=== PATIENT | female | born 1965 | race African-American/Black ===

== ENCOUNTER 2017-01-14 19:46 | Emergency (ER) | payer OTHER ==
[~2017-01-14] VITALS: Ht 157.5 cm; Wt 120.0 kg
[~2017-01-14 19:46] MED LIST: ALLO300T2 PO; CYCL5TAB PO; HYDR-3534 PO; IBUP-232 PO; LEVA500T PO; PAXI20TA PO; ROBA750T PO; SPIR50TA PO; ZOFR8TAB PO
[2017-01-14] MEDS ORDERED: HYDR25TA5 PO (20:03)
[2017-01-14] MEDS ORDERED: ZANT150T2 PO (20:03)
[2017-01-14] MEDS ORDERED: LORA-474 PO (20:03)
[2017-01-14 20:05] VITALS: BP 134/61; PULSE 100; RESP 18; TEMP 98.6; O2SAT 96
--- NOTE | 2017-01-14 20:05 | PD ---
HPI Chief Complaint: Prieto act Time Seen by Provider: 19:55 Travel History International Travel<30 days: No Contact w/Intl Traveler<30days: No Traveled to known affect area: No History of Present Illness HPI The patient is a 52-year-old female who presents to the emergency department as a Prieto act. According to the police affidavit the patient made statements that she is going to take too many medications in an attempt to harm herself. However, the patient denies any suicidal attempt. The patient states she is currently undergoing treatment by Dr. Mark for stage II Hodgkin's lymphoma that affect of the left inguinal region. The patient initially had radiation therapy and currently gets Rituxan on a once monthly basis via a port on the right chest wall. The patient states she is currently undergoing evaluation at work after she apparently gave an employee a bad evaluation and the employee is currently accusing her of her rash. The patient is worried she is going to lose her insurance for her Hodgkin's lymphoma. The patient denies any actual suicidal or homicidal ideation. She denies illicit drug use or alcohol use. She does take Ativan as needed for anxiety which is prescribed by her oncologist. PFSH Past Medical History Arthritis: Yes (OSTEO) Cancer: Yes (NON LYMPHOMA HODGKINS) : 5 Para: 3 Miscarriage: 1 : 1 Dilation and Curettage (D&C): Yes Past Surgical History Section: Yes Ear Surgery: Yes Tonsillectomy: Yes Social History Alcohol Use: Yes Tobacco Use: No Substance Use: No Allergies-Medications (Allergen,Severity, Reaction): Coded Allergies: Latex (Verified Allergy, Intermediate, RASH, 01/14/17) Reported Meds & Prescriptions Reported Meds & Active Scripts Active Ibuprofen 600 Mg Tab 600 Mg PO Q6H PRN Reported Paxil (Paroxetine HCl) 30 Mg Tab 30 Mg PO DAILY Ativan (Lorazepam) 1 Mg Tab 1 Mg PO DAILY PRN Zantac (Ranitidine HCl) 150 Mg Tab 150 Mg PO DAILY Hydrochlorothiazide 25 Mg Tab 25 Mg PO DAILY Zofran (Ondansetron HCl) 8 Mg Tab 8 Mg PO TID Spironolactone 50 Mg Tab 50 Mg PO DAILY Allopurinol 300 Mg Tab 300 Mg PO DAILY Lortab (Hydrocodone-Acetaminophen) 7.5-325 Mg Tab 1 Tab PO Q4H PRN Review of Systems Except as stated in HPI: all other systems reviewed are Neg HENT: No: Lightheadedness Cardiovascular: No: Chest Pain or Discomfort Respiratory: No: Shortness of Breath Gastrointestinal: No: Nausea, Vomiting Musculoskeletal: No: Weakness Neurologic: No: Change in Mentation Psychiatric: Positive: Anxiety, Depression, No: Suicidal Ideations, Mood Disorder, Substance Abuse, Homicidal Ideation Hematologic/Lymphatic: Positive: Other (Hodgkin's lymphoma) Physical Exam Narrative GENERAL: Awake, alert, nontoxic-appearing 52-year-old female who appears his stated age and is in no acute respiratory distress. SKIN: Focused skin assessment warm/dry. HEAD: Atraumatic. Normocephalic. EYES: Pupils equal and round. No scleral icterus. No injection or drainage. ENT: No nasal bleeding or discharge. Mucous membranes pink and moist. NECK: Trachea midline. No JVD. CARDIOVASCULAR: Regular rate and rhythm. No murmur appreciated. Port in place right chest wall. RESPIRATORY: No accessory muscle use. Clear to auscultation. Breath sounds equal bilaterally. MUSCULOSKELETAL: No obvious deformities. No clubbing. No cyanosis. No edema. NEUROLOGICAL: Awake and alert. No obvious cranial nerve deficits. Motor grossly within normal limits. Normal speech. PSYCHIATRIC: Appropriate mood and affect; insight and judgment normal. Data Data Orders Complete Blood Count With Diff (01/14/17 20:01) Comprehensive Metabolic Panel (01/14/17 20:01) Psych Screen (01/14/17 20:01) Drug Screen, Random Urine (01/14/17 20:01) Alcohol (Ethanol) (01/14/17 20:01) Labs Laboratory Tests Test 01/14/17 21:15 White Blood Count 6.1 TH/MM3 Red Blood Count 5.45 MIL/MM3 Hemoglobin 12.2 GM/DL Hematocrit 39.4 % Mean Corpuscular Volume 72.3 FL Mean Corpuscular Hemoglobin 22.4 PG Mean Corpuscular Hemoglobin 31.0 % Concent Red Cell Distribution Width 16.0 % Platelet Count 260 TH/MM3 Mean Platelet Volume 8.4 FL Neutrophils (%) (Auto) 67.2 % Lymphocytes (%) (Auto) 16.2 % Monocytes (%) (Auto) 12.5 % Eosinophils (%) (Auto) 3.4 % Basophils (%) (Auto) 0.7 % Neutrophils # (Auto) 4.1 TH/MM3 Lymphocytes # (Auto) 1.0 TH/MM3 Monocytes # (Auto) 0.8 TH/MM3 Eosinophils # (Auto) 0.2 TH/MM3 Basophils # (Auto) 0.0 TH/MM3 CBC Comment DIFF FINAL Differential Comment Sodium Level 139 MEQ/L Potassium Level 3.7 MEQ/L Chloride Level 104 MEQ/L Carbon Dioxide Level 26.9 MEQ/L Anion Gap 8 MEQ/L Blood Urea Nitrogen 14 MG/DL Creatinine 0.85 MG/DL Estimat Glomerular Filtration 85 ML/MIN Rate Random Glucose 93 MG/DL Calcium Level 9.5 MG/DL Total Bilirubin 0.6 MG/DL Aspartate Amino Transf 20 U/L (AST/SGOT) Alanine Aminotransferase 30 U/L (ALT/SGPT) Alkaline Phosphatase 89 U/L Total Protein 7.7 GM/DL Albumin 3.5 GM/DL Ethyl Alcohol Level LESS THAN 3 MG/DL MDM Medical Decision Making Medical Screen Exam Complete: Yes Emergency Medical Condition: Yes Medical Record Reviewed: Yes Interpretation(s) Laboratory Tests Test 01/14/17 21:15 White Blood Count 6.1 TH/MM3 Red Blood Count 5.45 MIL/MM3 Hemoglobin 12.2 GM/DL Hematocrit 39.4 % Mean Corpuscular Volume 72.3 FL Mean Corpuscular Hemoglobin 22.4 PG Mean Corpuscular Hemoglobin 31.0 % Concent Red Cell Distribution Width 16.0 % Platelet Count 260 TH/MM3 Mean Platelet Volume 8.4 FL Neutrophils (%) (Auto) 67.2 % Lymphocytes (%) (Auto) 16.2 % Monocytes (%) (Auto) 12.5 % Eosinophils (%) (Auto) 3.4 % Basophils (%) (Auto) 0.7 % Neutrophils # (Auto) 4.1 TH/MM3 Lymphocytes # (Auto) 1.0 TH/MM3 Monocytes # (Auto) 0.8 TH/MM3 Eosinophils # (Auto) 0.2 TH/MM3 Basophils # (Auto) 0.0 TH/MM3 CBC Comment DIFF FINAL Differential Comment Sodium Level 139 MEQ/L Potassium Level 3.7 MEQ/L Chloride Level 104 MEQ/L Carbon Dioxide Level 26.9 MEQ/L Anion Gap 8 MEQ/L Blood Urea Nitrogen 14 MG/DL Creatinine 0.85 MG/DL Estimat Glomerular Filtration 85 ML/MIN Rate Random Glucose 93 MG/DL Calcium Level 9.5 MG/DL Total Bilirubin 0.6 MG/DL Aspartate Amino Transf 20 U/L (AST/SGOT) Alanine Aminotransferase 30 U/L (ALT/SGPT) Alkaline Phosphatase 89 U/L Total Protein 7.7 GM/DL Albumin 3.5 GM/DL Ethyl Alcohol Level LESS THAN 3 MG/DL Differential Diagnosis Differential diagnosis includes stress reaction, adjustment reaction, suicidal ideation, Hodgkin's lymphoma, depression, anxiety, mood disorder. Narrative Course The patient's port was accessed, labs were drawn and sent, and the patient was placed on cardiac telemetry monitoring and continuous pulse oximetry monitoring. Psychiatric evaluation was ordered. Labs are unremarkable. Patient is medically cleared to be evaluated by psychiatry. Disposition as per psych. Diagnosis Primary Impression: Adjustment reaction Qualified Code: F43.20 - Adjustment disorder, unspecified type Condition: Stable Corey Baron MD Jan 14, 2017 20:05
[2017-01-14] MEDS ORDERED: PAXI30TA7 PO (21:01)
[2017-01-14 21:44] LABS: AUTOMATED NEUTROPHIL # 4.1 TH/MM3 (1.8-7.7); BASOPHIL % 0.7 % (0.0-2.0); EOSINOPHIL # 0.2 TH/MM3 (0-0.4); EOSINOPHIL % 3.4 % (0.0-4.0); HEMATOCRIT 39.4 % (35.0-46.0); HEMO FLAGS DIFF FINAL; LYMPH % 16.2 % (9.0-44.0); MEAN CELL VOLUME 72.3 FL (80.0-100.0); MEAN CORPUSCULAR HEMOGLOBIN 22.4 PG (27.0-34.0); MONO % 12.5 % (0.0-8.0); NEUT % 67.2 % (16.0-70.0); PLATELET COUNT 260 TH/MM3 (150-450); RED BLOOD COUNT 5.45 MIL/MM3 (4.00-5.30); WHITE BLOOD COUNT 6.1 TH/MM3 (4.0-11.0)
[2017-01-14 22:07] LABS: ANION GAP 8 MEQ/L (5-15); AST (GOT) 20 U/L (15-37); BICARBONATE 26.9 MEQ/L (21.0-32.0); BLOOD UREA NITROGEN 14 MG/DL (7-18); CHLORIDE 104 MEQ/L (98-107); GLOMERULAR FILTRATION RATE 85 ML/MIN (>89); POTASSIUM 3.7 MEQ/L (3.5-5.1); SODIUM (NA) 139 MEQ/L (136-145)
[2017-01-14 22:08] LABS: ALT (GPT) 30 U/L (10-53)
[2017-01-14 22:10] LABS: ALKALINE PHOSPHATASE 89 U/L (45-117); TOTAL BILIRUBIN ADULT 0.6 MG/DL (0.2-1.0)
[2017-01-14 23:00] VITALS: BP 112/68; PULSE 85; RESP 18; O2SAT 96
[2017-01-15 03:00] VITALS: BP 129/62; PULSE 79; RESP 18; O2SAT 98
[2017-01-15 07:58] VITALS: BP 134/78; PULSE 92; RESP 19; O2SAT 98
[2017-01-15] MEDS ORDERED: ACETAMINOPHEN 325 MG TAB PO ONE (08:15)
--- NOTE | 2017-01-15 12:15 | PD ---
History of Present Illness Chief Complaint: Psychiatric Symptoms Time Seen by Provider: 10:00 Travel History International Travel<30 Days: No Contact w/Intl Traveler<30days: No Known affected area: No Legal Status Legal Status: Prieto Act Prieto Act Signed By: Parul Arguello Prieto Act Comment: 2016 @ 1940 History of Present Illness: This is a 52-year-old female brought in under a Prieto act after reportedly being suicidal on her birthday. According to the patient, the patient wanted to spend her birthday alone. Her sister called wanting her to go out and she declined. Her boyfriend reportedly stopped by her home and that her sister arrived with the patient's sons. The patient's sister reportedly felt the patient needed to speak to somebody. The patient stated she did not need to speak to someone and instead took a shower. When she returned from her shower the police were there and they questioned her about having a significant number of Ativan. Patient states the Ativan or old but she was handcuffed by police and believes her words were misinterpreted or twisted. At the present time, the patient denies any suicidal or homicidal ideation, plan or intent. Her cognition is intact and she has no psychotic symptoms. She is verbally chet for safety and she is competent to do so. She denies significant symptoms of depression. PFSH Past Medical History Arthritis: Yes (OSTEO) Cancer: Yes (NON HODGKINS LYMPHOMA) Chemotherapy: Yes (LAST TREATMENT 12/26/16) Diminished Hearing: No Influenza Vaccination: No (UNKNOWN) ?: Not LMP: 12/14/16 : 5 Para: 3 Miscarriage: 1 : 1 Dilation and Curettage (D&C): Yes Past Surgical History Section: Yes Ear Surgery: Yes Tonsillectomy: Yes Other Surgery: Yes (LEFT INGUINAL BIOPSY) Psychiatric History Psychiatric History Hx Psychiatric Treatment: NONE History of Inpatient Treatment: No Guns or firearms in home: No Social History Hx Alcohol Use: Yes (OCCASIONALLY) Hx Tobacco Use: No Hx Substance Use: No Hx of Substance Use Treatment: No Allergies-Medications (Allergen,Severity, Reaction): Coded Allergies: Latex (Verified Allergy, Intermediate, RASH, 01/14/17) Reported Meds & Prescriptions Reported Meds & Active Scripts Active Ibuprofen 600 Mg Tab 600 Mg PO Q6H PRN Reported Paxil (Paroxetine HCl) 30 Mg Tab 30 Mg PO DAILY Ativan (Lorazepam) 1 Mg Tab 1 Mg PO DAILY PRN Zantac (Ranitidine HCl) 150 Mg Tab 150 Mg PO DAILY Hydrochlorothiazide 25 Mg Tab 25 Mg PO DAILY Zofran (Ondansetron HCl) 8 Mg Tab 8 Mg PO TID Spironolactone 50 Mg Tab 50 Mg PO DAILY Allopurinol 300 Mg Tab 300 Mg PO DAILY Lortab (Hydrocodone-Acetaminophen) 7.5-325 Mg Tab 1 Tab PO Q4H PRN Review of Systems Except as stated in HPI: all other systems reviewed are Neg Exam Alert: Yes [place]: Person, Place, Date Mood: Calm Affect: Appropriate Speech: Clear, Logical Eye Contact: Normal Memory Intact: Immediate, Recent, Remote Insight/Judgement Adequate [facility] Medical Decision Making Medical Record Reviewed: Yes Assessment/Plan Patient is reporting no suicidal or homicidal ideation, plan or intent. Her cognition is intact and she has no psychosis. She denies any use of alcohol or illicit drugs. She is verbally chet for safety and she is competent to do so. This physician feels the patient was an appropriately Prieto acted, based on the information provided. Orders Complete Blood Count With Diff (01/14/17 20:01) Comprehensive Metabolic Panel (01/14/17 20:01) Psych Screen (01/14/17 20:01) Drug Screen, Random Urine (01/14/17 20:01) Alcohol (Ethanol) (01/14/17 20:01) Acetaminophen (Tylenol) (01/15/17 08:15) Diet Regular Basic (01/15/17 Breakfast) Results Vital Signs Date Time Temp Pulse Resp B/P Pulse Ox O2 Delivery O2 Flow Rate FiO2 01/15/17 07:58 92 19 01/15/17 07:58 92 19 134/78 98 Room Air 01/15/17 03:00 79 18 129/62 98 Room Air 01/14/17 23:00 85 18 112/68 96 Room Air 01/14/17 20:05 98.6 100 18 134/61 96 Room Air Laboratory Tests Test 01/14/17 21:15 White Blood Count 6.1 Red Blood Count 5.45 Hemoglobin 12.2 Hematocrit 39.4 Mean Corpuscular Volume 72.3 Mean Corpuscular Hemoglobin 22.4 Mean Corpuscular Hemoglobin 31.0 Concent Red Cell Distribution Width 16.0 Platelet Count 260 Mean Platelet Volume 8.4 Neutrophils (%) (Auto) 67.2 Lymphocytes (%) (Auto) 16.2 Monocytes (%) (Auto) 12.5 Eosinophils (%) (Auto) 3.4 Basophils (%) (Auto) 0.7 Neutrophils # (Auto) 4.1 Lymphocytes # (Auto) 1.0 Monocytes # (Auto) 0.8 Eosinophils # (Auto) 0.2 Basophils # (Auto) 0.0 CBC Comment DIFF FINAL Differential Comment Sodium Level 139 Potassium Level 3.7 Chloride Level 104 Carbon Dioxide Level 26.9 Anion Gap 8 Blood Urea Nitrogen 14 Creatinine 0.85 Estimat Glomerular Filtration 85 Rate Random Glucose 93 Calcium Level 9.5 Total Bilirubin 0.6 Aspartate Amino Transf 20 (AST/SGOT) Alanine Aminotransferase 30 (ALT/SGPT) Alkaline Phosphatase 89 Total Protein 7.7 Albumin 3.5 Ethyl Alcohol Level LESS THAN 3 Diagnosis Primary Impression: Adjustment disorder with mixed disturbance of emotions and conduct Departure Forms: Tests/Procedures Patient Instructions: General Instructions, Mood Disorders (ED) Disposition: 01 DISCHARGE HOME Condition: Stable Nitesh Segura MD Jan 15, 2017 12:15
== END 2017-01-15 10:21 | disposition home or self-care (01) ==
LOC: NEPD 19:46
DX: F43.25 Adjustment disorder with mixed disturbance of emotions and conduct (principal); C85.90 Non-Hodgkin lymphoma, unspecified, unspecified site
CPT/HCPCS: 80053; 80307; 85025; 99284

== ENCOUNTER 2018-02-18 14:14 | Observation (INO) ==
[2018-02-18] MEDS ORDERED: Morphine Inj 4 MG/ML Vial IV.PUSH ONE (16:55)
[2018-02-18] MEDS ORDERED: Sod Chloride 0.9% Inj 1,000 ML IV.SIG ONE (16:55)
--- NOTE | 2018-02-18 16:58 | ED ---
HPI General Chief complaint: Chest Pain Stated complaint: Gen pain Time Seen by Provider: 02/18/18 16:55 History of Present Illness HPI narrative: 53-year-old female with a history of chronic low back pain and Hodgkin's lymphoma in remission presents to the emergency department for evaluation of abdominal pain, nausea and chest pain. Patient states that this morning at 2 AM she woke up with these complaints. States that it kept her up for several hours until she laid back down. States that when she woke up again this morning the symptoms have persisted. States that she has generalized abdominal pain that is an 8 on a scale of 1-10. States that the chest pain is located over her left chest and radiates to her left shoulder. States that this chest pain is a 6 on a scale of 1-10. States that her nausea has been persistent however she has had no vomiting. States that she has been able to keep fluids down but has not eaten anything today. Denies any fever, chills, shortness of breath, difficulty breathing, cough or cold symptoms, diarrhea. Denies any history of heart disease. No other complaints. Related Data Home Medications Medication Instructions Recorded Confirmed oxycodone-acetaminophen [Percocet] 1 tab PO BID PRN 02/18/18 02/18/18 Allergies Allergy/AdvReac Type Severity Reaction Status Date / Time latex Allergy Intermediate RASH Verified 02/18/18 17:07 Review of Systems ROS: all other systems reviewed are negative PMFSH Social History Social History Substance History: No History of Abuse Second Hand Smoke Exposure: No Smoking Status: Never smoker How Often Do You Have a Drink Containing Alcohol: Monthly or less Recent Travel in [facility] within the Last 8 Weeks: No Recent Out of Country Travel within the Last 8 Weeks: No Exam Narrative Exam Narrative: GENERAL: Well-nourished and well-developed pleasant patient in no acute distress who does appear in moderate discomfort. SKIN: Warm and dry. HEAD: Normocephalic and atraumatic. EYES: No injection, drainage, or hyphema noted. PERRLA. EOMI. ENT: No nasal drainage noted. Oropharynx is clear. NECK: Supple and the trachea is midline. CARDIOVASCULAR: Regular rate and rhythm. RESPIRATORY: Breath sounds are equal bilaterally with no accessory muscle use, wheezing, rhonchi, or crackles. GASTROINTESTINAL: Generalized tenderness to palpation. Abdomen is soft and nondistended. MUSCULOSKELETAL: No obvious deformities, swelling, cyanosis, or ecchymosis is present throughout the upper and lower extremities. Patient has full range of motion without any signs of neurovascular compromise. Distal pulses are 2+ throughout. NEUROLOGICAL: Awake, alert, and oriented. Normal speech and gait. Cranial nerves are grossly intact. Course Initial Documented Vital Signs Temperature 98.7 F 02/18/18 14:33 Pulse Rate 98 H 02/18/18 14:33 Respiratory Rate 18 02/18/18 14:33 Blood Pressure 142/71 H 02/18/18 14:33 Pulse Oximetry 96 02/18/18 14:33 Last Documented Vital Signs Temperature 98.7 F 02/18/18 14:33 Pulse Rate 91 H 02/18/18 19:55 Respiratory Rate 18 02/18/18 19:55 Blood Pressure 124/70 02/18/18 19:55 Pulse Oximetry 97 02/18/18 19:55 Medical Decision Making MDM Narrative Medical decision making narrative: 53-year-old female persists to the emergency department for evaluation of abdominal pain, nausea and chest pain. Patient is afebrile, vital signs are stable. IV access is obtained, labs of been drawn and sent. Patient is administered Zofran 4 mg IV, morphine 4 mg IV and IV fluids. CT imaging of the abdomen and pelvis has been ordered and is pending. CBC is unremarkable. CMP shows elevated LFTs, otherwise unremarkable. Troponin is less than 0.02. Urinalysis shows 30 protein, large occult blood, positive nitrates, moderate leukocyte esterase, 32 RBCs, 35 white blood cells, moderate bacteria, many mucus. Chest x-ray shows either volume overload versus mild congestive heart failure. No evidence of pneumonia. CT the abdomen and pelvis shows uncomplicated colonic diverticulosis, degenerative changes and scoliosis of the thoracolumbar spine. BNP is unremarkable. Patient has remained stable here in the ED. Patient administered Rocephin 1 g IV for UTI. Pain has improved. Will admit patient to chest pain center for chest pain. Will continue antibiotics for UTI. Medical Screen Exam Complete: Yes Emergency Medical Condition: Yes Differential Diagnosis Differential Diagnosis: Colitis versus diverticulitis versus gastritis versus chest wall pain versus pleurisy versus ACS Lab Data Result diagrams: 02/18/18 17:16 02/18/18 17:16 POC Results POC Urine Results Negative Lab Results 02/18/18 02/18/1818 Range/Units 17:16 17:16 17:16 WBC 6.0 (4.0-11.0) th/mm3 RBC 5.30 (4.00-5.30) mil/mm3 Hgb 11.7 (11.6-15.3) gm/dL Hct 38.0 (35.0-46.0) % MCV 71.8 L (80.0-100.0) fL MCH 22.1 L (27.0-34.0) pg MCHC 30.8 L (32.0-36.0) % RDW 15.2 (11.6-17.2) % Plt Count 209 (150-450) th/mm3 MPV 8.7 (7.0-11.0) fL Neut % (Auto) 57.5 (16.0-70.0) % Lymph % (Auto) 23.5 (9.0-44.0) % [place] % (Auto) 17.1 H (0.0-8.0) % Eos % (Auto) 1.5 (0.0-4.0) % Baso % (Auto) 0.4 (0.0-2.0) % Neut # (Auto) 3.5 (1.8-7.7) th/mm3 Lymph # (Auto) 1.4 (1.0-4.8) th/mm3 [place] # (Auto) 1.0 H (0.0-0.9) th/mm3 Eos # (Auto) 0.1 (0.0-0.4) th/mm3 Baso # (Auto) 0.0 (0.0-0.2) th/mm3 WBC Differential . Differential Comment Auto diff final Sodium 143 (136-145) meq/L Potassium 3.8 (3.5-5.1) meq/L Chloride 107 (98-107) meq/L Carbon Dioxide 27.2 (21.0-32.0) meq/L Anion Gap 9 (5-15) meq/L BUN 12 (7-18) mg/dL Creatinine 0.73 (0.50-1.00) mg/dL Estimated GFR Greater than 89 (>89) mL/min Random Glucose 96 (74-106) mg/dL Calcium 9.4 (8.5-10.1) mg/dL Total Bilirubin 0.9 (0.2-1.0) mg/dL AST 61 H (15-37) U/L ALT 76 H (10-53) U/L Alkaline Phosphatase 123 H (45-117) U/L Troponin I Less than 0.02 L (0.02-0.05) ng/mL B-Natriuretic Peptide (0-100) pg/mL Total Protein 7.9 (6.4-8.2) g/dL Albumin 3.3 L (3.4-5.0) g/dL Lipase 149 (73-393) U/L Urine Color (Yellw/Straw) Urine Clarity (Clear) Urine pH (5.0-8.5) Ur Specific [place] (1.002-1.035) Urine Protein (Neg-Trace) mg/dL Urine Glucose (UA) (Negative) mg/dL Urine Ketones (Negative) mg/dL Urine Occult Blood (Negative) Urine Nitrate (Negative) Urine Bilirubin (Negative) Urine Urobilinogen (Less than 2) mg/dL Ur Leukocyte Esterase (Negative) Urine RBC (0-3) /hpf Urine WBC (0-5) /hpf Ur Squamous Epith Cells (0-5) /hpf Urine Bacteria (None) /hpf Urine Mucus (Occasional) /lpf Micro UA Comment Ur Microscopic Review Urine Culture Comments 02/18/18 02/18/18 Range/Units 17:16 17:52 WBC (4.0-11.0) th/mm3 RBC (4.00-5.30) mil/mm3 Hgb (11.6-15.3) gm/dL Hct (35.0-46.0) % MCV (80.0-100.0) fL MCH (27.0-34.0) pg MCHC (32.0-36.0) % RDW (11.6-17.2) % Plt Count (150-450) th/mm3 MPV (7.0-11.0) fL Neut % (Auto) (16.0-70.0) % Lymph % (Auto) (9.0-44.0) % [place] % (Auto) (0.0-8.0) % Eos % (Auto) (0.0-4.0) % Baso % (Auto) (0.0-2.0) % Neut # (Auto) (1.8-7.7) th/mm3 Lymph # (Auto) (1.0-4.8) th/mm3 [place] # (Auto) (0.0-0.9) th/mm3 Eos # (Auto) (0.0-0.4) th/mm3 Baso # (Auto) (0.0-0.2) th/mm3 WBC Differential Differential Comment Sodium (136-145) meq/L Potassium (3.5-5.1) meq/L Chloride (98-107) meq/L Carbon Dioxide (21.0-32.0) meq/L Anion Gap (5-15) meq/L BUN (7-18) mg/dL Creatinine (0.50-1.00) mg/dL Estimated GFR (>89) mL/min Random Glucose (74-106) mg/dL Calcium (8.5-10.1) mg/dL Total Bilirubin (0.2-1.0) mg/dL AST (15-37) U/L ALT (10-53) U/L Alkaline Phosphatase (45-117) U/L Troponin I (0.02-0.05) ng/mL B-Natriuretic Peptide 47 (0-100) pg/mL Total Protein (6.4-8.2) g/dL Albumin (3.4-5.0) g/dL Lipase (73-393) U/L Urine Color [place] (Yellw/Straw) Urine Clarity Cloudy H (Clear) Urine pH 5.0 (5.0-8.5) Ur Specific [place] 1.029 (1.002-1.035) Urine Protein 30 H (Neg-Trace) mg/dL Urine Glucose (UA) Negative (Negative) mg/dL Urine Ketones Negative (Negative) mg/dL Urine Occult Blood Large H (Negative) Urine Nitrate Positive H (Negative) Urine Bilirubin Negative (Negative) Urine Urobilinogen 2.0 H (Less than 2) mg/dL Ur Leukocyte Esterase Moderate H (Negative) Urine RBC 32 H (0-3) /hpf Urine WBC 35 H (0-5) /hpf Ur Squamous Epith Cells 13 (0-5) /hpf Urine Bacteria Moderate H (None) /hpf Urine Mucus Many H (Occasional) /lpf Micro UA Comment Culture indicated Ur Microscopic Review Not Reportable Urine Culture Comments Culture indicated Imaging Data Radiologist's impression: Abdomen/Pelvis CT 02/18/18 16:55 CONCLUSION: 1. Uncomplicated colonic diverticulosis. 2. Degenerative changes and scoliosis of the thoracolumbar spine. Chest X-Ray 02/18/18 16:55 CONCLUSION: Radiographic appearance consistent with either volume overload versus mild congestive heart failure. No evidence of pneumonia. Discharge Plan Discharge Disposition Patient Disposition: 30 Still Patient Discharge Condition Condition: Stable Discharge Details Diagnosis: Atypical chest pain, UTI (urinary tract infection) Physicians Team ED Provider: Aravind Nunez ED Midlevel Provider: Mariel Bello Primary Care Provider: Loren Rodriguez Attending Provider: Dayo Acharya Discharge Interventions Interventions: Vital Signs Last Done: 02/18/18 19:55 Status ED Status: Admitted Observation Patient
[2018-02-18 17:33] LABS: Baso % (Auto) 0.4 % (0.0-2.0); Eos # (Auto) 0.1 th/mm3 (0.0-0.4); Eos % (Auto) 1.5 % (0.0-4.0); Hemoglobin 11.7 gm/dL (11.6-15.3); Lymph # (Auto) 1.4 th/mm3 (1.0-4.8); Lymph % (Auto) 23.5 % (9.0-44.0); Mean Corpuscular Hemoglobin 22.1 pg (27.0-34.0); Mean Corpuscular Volume 71.8 fL (80.0-100.0); Mean Platelet Volume 8.7 fL (7.0-11.0); Mono % (Auto) 17.1 % (0.0-8.0); Neut # (Auto) 3.5 th/mm3 (1.8-7.7); Neut % (Auto) 57.5 % (16.0-70.0); Platelet Count 209 th/mm3 (150-450); Red Cell Distribution Width 15.2 % (11.6-17.2)
--- NOTE | 2018-02-18 17:36 | XR ---
EXAM DATE: 02/18/2018 5:32 PM EDT AGE/SEX: 53 years / Female INDICATIONS: Chest pain for 2 days. CLINICAL DATA: This is the patient's initial encounter. Patient reports that signs and symptoms have been present for 2 days and indicates a pain score of 8/10. MEDICAL/SURGICAL HISTORY: None. None. COMPARISON: No prior exams available for comparison. FINDINGS: Portable upright view of the chest demonstrates a central line with the tip overlying the mid SVC. Ca rdiac size appears mildly enlarged and there is mild prominence of the central pulmonary vasculature. Lungs are clear. Osseous structures are intact. CONCLUSION: Radiographic appearance consistent with either volume overload versus mild congestive heart failure. No evidence of pneumonia. Electronically signed by: Su Desouza MD 02/18/2018 5:35 PM EDT
[2018-02-18 17:37] LABS: Mean Corpuscular HGB Conc 30.8 % (32.0-36.0)
[2018-02-18 17:48] LABS: Alanine Aminotransferase 76 U/L (10-53); Albumin 3.3 g/dL (3.4-5.0); Anion Gap 9 meq/L (5-15); Aspartate Aminotransferase 61 U/L (15-37); Blood Urea Nitrogen 12 mg/dL (7-18); Calcium 9.4 mg/dL (8.5-10.1); Carbon Dioxide 27.2 meq/L (21.0-32.0); Chloride 107 meq/L (98-107); Glomerular Filtration Rate Greater Than 89 mL/min (>89); Glucose,Random 96 mg/dL (74-106); Potassium 3.8 meq/L (3.5-5.1); Sodium 143 meq/L (136-145)
[2018-02-18 17:52] LABS: Alkaline Phosphatase 123 U/L (45-117); Total Protein 7.9 g/dL (6.4-8.2)
[2018-02-18 18:11] LABS: Bacteria,Urine Moderate /hpf; Bilirubin,Urine Negative (Negative); Clarity,Urine Cloudy (Clear); Color,Urine Amber (Yellw/Straw); Glucose,Urine (UA) Negative (Negative); Leukocyte Esterase,Urine Moderate (Negative); Mucus,Urine Many /lpf (Occasional); Nitrite,Urine Positive (Negative); Specific Gravity,Urine 1.029 (1.002-1.035); Squamous Epithelial Cell,Urine 13 /hpf (0-5)
--- NOTE | 2018-02-18 19:04 | CT ---
EXAM DATE: 02/18/2018 6:55 PM EDT AGE/SEX: 53 years / Female INDICATIONS: Lower bilateral abdomen pain for one day. CLINICAL DATA: This is the patient's initial encounter. Patient reports that signs and symptoms have been present for 1 day and indicates a pain score of 7/10. MEDICAL/SURGICAL HISTORY: . Hodgkin's Lymphoma. None. ORAL CONTRAST: No oral contrast ingested. RADIATION DOSE: 33.50 CTDI (mGy) ; Patient body habitus COMPARISON: [facility] – [place], CT ABDOMEN & PELVIS W/O CONTRAST, 05/04/2016. . TECHNIQUE: Multiple contiguous axial images were obtained through the abdomen and pelvis following b olus infusion of 97 ml Omnipaque 350 (iohexol) nonionic water-soluble contrast as a single exam dos e. No oral contrast ingested. Using automated exposure control and adjustment of the mA and/or kV ac cording to patient size, radiation dose was kept as low as reasonably achievable to obtain optimal di agnostic quality images. DICOM format image data is available electronically for review and comparis on. FINDINGS: Lower Lungs: The visualized lower lungs are clear. Liver: The liver has a homogeneous density without space-occupying lesion. There is no dilation of th e biliary tree. Spleen: Homogeneous density without enlargement. Pancreas: Unremarkable without mass or calcification. Kidneys: Normal in size and shape. No evidence of mass or hydronephrosis. Adrenal Glands: Unremarkable. Aorta: The aorta and proximal iliac vessels are grossly unremarkable without aneurysmal dilation. Bowel/Mesentery: Uncomplicated colonic diverticulosis is noted. No acute diverticulitis is noted. Abdominal Wall: Intact. Retroperitoneum: No evidence of adenopathy in the retrocrural, para-aortic, or deep pelvic regions. Bladder: Contours are smooth. Reproductive Organs: No abnormal masses or calcifications seen. Inguinal: The inguinal region is unremarkable without evidence of adenopathy. Bony Structures: Degenerative changes and scoliosis of the thoracolumbar spine are noted. CONCLUSION: 1. Uncomplicated colonic diverticulosis. 2. Degenerative changes and scoliosis of the thoracolumbar spine. Electronically signed by: Grady Gomez MD 02/18/2018 7:03 PM EDT
[2018-02-18] MEDS ORDERED: Iohexol Inj 350 MG/ML 100 ML Bottle (for RAD Diag) IVCONTRAST ONE (19:28)
[2018-02-18] MEDS: Sod Chloride 0.9% Inj 1,000 ML IV.CONT SCH (23:17)
[2018-02-18 23:43] LABS: Creatine Kinase 118 U/L (26-192)
[2018-02-19 03:57] LABS: Creatine Kinase 110 U/L (26-192)
[2018-02-19] MEDS: Sod Chloride 0.9% Inj 1,000 ML IV.CONT SCH (08:30)
[2018-02-19] MEDS ORDERED: Aspirin 325 MG Tablet PO SCH (09:00)
--- NOTE | 2018-02-19 11:31 | P.HPIM ---
History of Present Illness Primary Care Physician: Loren Rodriguez Chief Complaint: Chest, shoulder, abdominal pain, N/V History of Present Illness: The patient is a 53 year old female with a past medical history significant for Hodgkin's Lymphoma diagnosed in 2016 and currently in remission who is presenting to the hospital with chest, shoulder, abdominal pain and nausea and vomiting. The patient says that she woke up yesterday morning at 2:52 AM secondary to severe chest, shoulder and abdominal pain. She said the chest pain was located at the top left of her chest. She says her shoulder pain was located in her left shoulder area. She describes generalized abdominal pain. She is not sure which pain started first. She said she was sweating a lot while she was having the symptoms. She denied shortness of breath. She did not think she had a fever. She denies any new rashes. She says the pain kept getting worse throughout the day so she came to the hospital for further evaluation. In the ED she received morphine and her pain resolved with that. She is still very nauseous. She says her symptoms are similar to the symptoms she had when diagnosed with Hodgkin's Lymphoma. She underwent chemotherapy and radiation treatment and is currently in remission. She states that she has a had an unintentional weight loss of 30 pounds over the past few months. She says that she gets full very quickly and sometimes has abdominal pain. She said that she had an upper and lower GI within the last few years. She follows up with oncology as an outpt regularly. She still has a port in place. She is currently complaining of a headache. Review of Systems All other systems reviewed negative except as stated in HPI PMFSH - History History Provided By: Patient - Medical History Medical History: Medical History (Last Reviewed 02/19/18 @ 11:32 by Geo Romero DO) Chronic low back pain Hodgkins lymphoma - Surgical History Surgical History: Surgical History (Last Updated 02/19/18 @ 11:32 by Geo Romero DO) Previous section - Family History Family History: Family History (Last Updated 02/19/18 @ 11:33 by Geo Romero DO) Other Dementia HTN (hypertension) - Social History I have reviewed the patient's Social History: Yes - Tobacco History Second Hand Smoke Exposure: No Tobacco Use In Past 30 Days: No Smoking Status: Never smoker - Alcohol History How Often Do You Have a Drink Containing Alcohol: Monthly or less - Substance Use History Substance History: No History of Abuse - Travel History Recent Travel in the [place] Within the Last 8 Weeks: No Recent Travel Out of the Country Within the Last 8 Weeks: No - Immunization History Tetanus Immunization: >5 Years Hx Influenza Vaccine This Season: No Medications and Allergies Active Medications: Active Medications Hydrocodone Bitart/Acetaminophen (Yulan 7.5/325) 1 tab PO Q4H PRN PRN Reason: PAIN SCALE 1 TO 7 Last Admin: 02/18/18 23:15 Dose: 1 tab Cephalexin Monohydrate (Keflex) 500 mg PO BID [facility] Last Admin: 02/19/18 08:01 Dose: 500 mg Sodium Chloride (Ns Inj) 1,000 mls @ 100 mls/hr IV.CONT .Q10H [facility] Last Admin: 02/19/18 08:30 Dose: 100 mls/hr Ketorolac Tromethamine (Toradol Inj) 30 mg IV.PUSH Q6H [facility] Stop: 02/21/18 02:01 Metoclopramide HCl (Reglan Inj) 5 mg IV.PUSH Q8H PRN; Protocol PRN Reason: BREAKTHROUGH NAUSEA Ondansetron HCl (Zofran Inj) 4 mg IV.PUSH Q6H PRN PRN Reason: NAUSEA Last Admin: 02/19/18 08:01 Dose: 4 mg Oxycodone/Acetaminophen (Percocet 10/325 Mg) 1 tab PO Q4H PRN PRN Reason: pain 8-10 Sodium Chloride (Ns Flush) 2 ml IV.FLUSH UNSCH PRN PRN Reason: FLUSH AFTER USING IV ACCESS Sodium Chloride (Ns Flush) 2 ml IV.FLUSH BID [facility] Last Admin: 02/19/18 08:01 Dose: 2 ml Sodium Chloride (Ns Flush) 2 ml IV.FLUSH PRN PRN PRN Reason: FLUSH AFTER USING IV ACCESS Allergies Allergy/AdvReac Type Severity Reaction Status Date / Time latex Allergy Intermediate RASH Verified 02/18/18 17:07 Home Medications Medication Instructions Recorded Confirmed Type oxycodone-acetaminophen [Percocet] 1 tab PO BID PRN 02/18/18 02/18/18 History Exam Vital signs: Vital Signs 02/18/18 14:33 02/18/18 17:19 02/18/18 17:50 Temperature 98.7 F Pulse Rate 98 H 96 H Respiratory Rate 18 18 18 Blood Pressure 142/71 H 133/88 Pulse Oximetry 96 98 02/18/18 19:55 02/18/18 23:00 02/19/18 00:00 Temperature 98.2 F Pulse Rate 91 H 92 H 88 Respiratory Rate 18 20 Blood Pressure 124/70 138/76 Pulse Oximetry 97 96 02/19/18 01:00 02/19/18 02:00 02/19/18 03:00 Temperature 98.7 F Pulse Rate 89 92 H 114 H Respiratory Rate 20 Blood Pressure 109/58 L Pulse Oximetry 96 02/19/18 04:00 02/19/18 05:00 02/19/18 06:00 Temperature Pulse Rate 93 H 87 91 H Respiratory Rate Blood Pressure Pulse Oximetry 02/19/18 07:00 02/19/18 08:00 02/19/18 09:00 Temperature 98.2 F Pulse Rate 95 H 89 88 Respiratory Rate 24 Blood Pressure 141/81 H Pulse Oximetry 97 97 02/19/18 10:00 02/19/18 11:00 Temperature 98.5 F Pulse Rate 95 H 90 Respiratory Rate 20 Blood Pressure 138/73 Pulse Oximetry 97 Intake & Output 02/18/18 02/19/18 02/19/18 18:59 06:59 18:59 Intake Total 1000 / 1000 340 / 340 1000 / 1000 Output Total 300 / 300 Balance 1000 / 1000 40 / 40 1000 / 1000 Weight 151.5 kg 151.5 kg Intake: IV 1000 / 1000 100 / 100 1000 / 1000 NS Inj 1,000 ML @ 100 mls/hr IV 1000 / 1000 .CONT .Q10H [facility] Rx#:[id number] NS Inj 1,000 ML @ Wide Open IV. 1000 / 1000 SIG BOLUS ONE Rx#:[id number] Rocephin Inj 1,000 MG In NS Inj 100 / 100 100 ML @ 200 mls/hr IV.SIG ONCE ONE Rx#:[id number] Oral 240 / 240 Output: Urine 300 / 300 Other: Date of Last Bowel Movement 02/17/18 Narrative: GENERAL: Well-nourished and well-developed. SKIN: Warm and dry. HEAD: Normocephalic and atraumatic. EYES: No injection, drainage, or hyphema noted. PERRLA. EOMI. ENT: No nasal drainage noted. Oropharynx is clear. NECK: Supple and the trachea is midline. CARDIOVASCULAR: Regular rate and rhythm. RESPIRATORY: Breath sounds are equal bilaterally with no accessory muscle use, wheezing, rhonchi, or crackles. GASTROINTESTINAL: Generalized tenderness to palpation of chest wall. Abdomen is soft and nondistended but has general tenderness upon palpation. MUSCULOSKELETAL: No obvious deformities, swelling, cyanosis, or ecchymosis is present throughout the upper and lower extremities. Patient has full range of motion without any signs of neurovascular compromise. Distal pulses are 2+ throughout. NEUROLOGICAL: Awake, alert, and oriented. Normal speech and gait. Cranial nerves are grossly intact. Results - Labs CBC & Chem 7: 02/18/18 17:16 02/18/18 17:16 Labs: Short CBC 02/18/18 Range/Units 17:16 WBC 6.0 (4.0-11.0) th/mm3 Hgb 11.7 (11.6-15.3) gm/dL Hct 38.0 (35.0-46.0) % Plt Count 209 (150-450) th/mm3 BMP 02/18/18 17:16 Sodium 143 Potassium 3.8 Chloride 107 Carbon Dioxide 27.2 BUN 12 Creatinine 0.73 Calcium 9.4 Cardiac Enzymes 02/18/18 02/18/18 02/19/18 Range/Units 17:16 22:30 02:22 Total Creatine Kinase 118 110 (26-192) U/L Troponin I Less than 0.02 L Less than 0.02 L Less than 0.02 L (0.02-0.05) ng/mL Liver Function 02/18/18 Range/Units 17:16 Total Bilirubin 0.9 (0.2-1.0) mg/dL AST 61 H (15-37) U/L ALT 76 H (10-53) U/L Alkaline Phosphatase 123 H (45-117) U/L Albumin 3.3 L (3.4-5.0) g/dL Urine 02/18/18 Range/Units 17:52 Urine Color Ida (Yellw/Straw) Urine Clarity Cloudy H (Clear) Urine pH 5.0 (5.0-8.5) Ur Specific [place] 1.029 (1.002-1.035) Urine Protein 30 H (Neg-Trace) mg/dL Urine Glucose (UA) Negative (Negative) mg/dL - Imaging Impressions Abdomen/Pelvis CT 02/18/18 16:55 CONCLUSION: 1. Uncomplicated colonic diverticulosis. 2. Degenerative changes and scoliosis of the thoracolumbar spine. Chest X-Ray 02/18/18 16:55 CONCLUSION: Radiographic appearance consistent with either volume overload versus mild congestive heart failure. No evidence of pneumonia. Caprini VTE Risk Assessment Caprini VTE Risk Assessment: Moderate/High Risk (score >= 2) Caprini Risk Assessment Model: Point Value = 1 Point Value = 2 Point Value = 3 Point Value = 5 Age 41-60 Minor surgery BMI > 25 kg/m2 Swollen legs Varicose veins or History of unexplained or recurrent spontaneous Oral contraceptives or hormone replacement Sepsis (< 1 month) Serious lung disease, including pneumonia (< 1 month) Abnormal pulmonary function Acute myocardial infarction Congestive heart failure (< 1 month) History of inflammatory bowel disease Medical patient at bed rest Age 61-74 Arthroscopic surgery Major open surgery (> 45 min) Laparoscopic surgery (> 45 min) Malignancy Confined to bed (> 72 hours) Immobilizing plaster cast Central venous access Age >= 75 History of VTE Family history of VTE Factor V Leiden Prothrombin [id number] Lupus anticoagulant Anticardiolipin antibodies Elevated serum homocysteine Heparin-induced thrombocytopenia Other congenital or acquired thrombophilia Stroke (< 1 month) Elective arthroplasty Hip, pelvis, or leg fracture Acute spinal cord injury (< 1 month) Prophylaxis Regimen: Total Risk Factor Score Risk Level Prophylaxis Regimen 0-1 Low Early ambulation 2 Moderate Order ONE of the following: *Sequential Compression Device (SCD) *Heparin 5000 units SQ BID 3-4 Higher Order ONE of the following medications: *Heparin 5000 units SQ TID *Enoxaparin/Lovenox 40 mg SQ daily (WT < 150 kg, CrCl > 30 mL/min) *Enoxaparin/Lovenox 30 mg SQ daily (WT < 150 kg, CrCl > 10-29 mL/min) *Enoxaparin/Lovenox 30 mg SQ BID (WT < 150 kg, CrCl > 30 mL/min) AND/OR *Sequential Compression Device (SCD) 5 or more Highest Order ONE of the following medications: *Heparin 5000 units SQ TID (Preferred with Epidurals) *Enoxaparin/Lovenox 40 mg SQ daily (WT < 150 kg, CrCl > 30 mL/min) *Enoxaparin/Lovenox 30 mg SQ daily (WT < 150 kg, CrCl > 10-29 mL/min) *Enoxaparin/Lovenox 30 mg SQ BID (WT < 150 kg, CrCl > 30 mL/min) AND *Sequential Compression Device (SCD) Assessment and Plan - Plan Chest pain/ Shoulder pain/ Abdominal pain Seems musculoskeletal. Reproducible on exam. Trops negative. EKG without acute ischemia. CXR with mild volume overload. Patient states she has had a normal cardiac catheterization in the past. -pain control with a bowel regimen. -telemetry. -trend LFTs. -physical therapy. N/V/ Weight loss The pt endorses a recent 30 pound weight loss. LFTs are mildly elevated. -check TSH and A1c. -antiemetics as needed. -clear liquid diet for now. -trend LFTs. Hodgkin's Lymphoma The pt states her symptoms are identical to the symptoms she had when diagnosed with lymphoma. In addition she has had an unintentional 30 pound weight loss. -oncology consult requested. -ADAT. -follow CBC. UTI UA indicative of infection. -continue PO Keflex and follow urine culture. PPx: SCDs H&P: Quality - VTE Deep Vein Thrombosis/Pulmonary Embolism Present on Admission: No
[2018-02-19] MEDS: oxyCODONE/Acetaminophen 10/325 Tablet PO PRN ×2 (13:24→23:54)
[2018-02-19] MEDS ORDERED: Ketorolac Inj 30 MG/ML (IVP) Vial IV.PUSH SCH (20:00)
[2018-02-19 20:59] LABS: Hemoglobin A1c 5.6 % (4.3-6.0)
--- NOTE | 2018-02-20 00:06 | ECG ---
Date Performed: 02/19/2018 Time Performed: 01:26:48 PTAGE: 53 years EKG: Sinus rhythm Left axis deviation IV conduction defect Abnormal ECG PREVIOUS TRACING : 02/18/2018 22.35 Since the previous tracing, no significant change noted DOCTOR: Raymond Arguello Interpretating Date/Time 02/20/2018 00:04:51
--- NOTE | 2018-02-20 00:10 | ECG ---
Date Performed: 02/18/2018 Time Performed: 22:35:03 PTAGE: 53 years EKG: Sinus rhythm MARKED LEFT AXIS DEVIATION INTRAVENTRICULAR CONDUCTION DELAY POSSIBLE LEFT VENTRICULAR HYPERTROPHY P ROBABLE LATERAL MYOCARDIAL INFARCTION ABNORMAL ECG PREVIOUS TRACING : 02/18/2018 18.12 Since the previous tracing, no significant change noted DOCTOR: Raymond Arguello Interpretating Date/Time 02/20/2018 00:09:18
--- NOTE | 2018-02-20 00:39 | ECG ---
Date Performed: 02/18/2018 Time Performed: 18:12:53 PTAGE: 53 years EKG: Sinus rhythm MARKED LEFT AXIS DEVIATION VOLTAGE CRITERIA FOR LVH POSSIBLE LATERAL MYOCARDIAL INFARCTION ABNORMAL ECG WARNING: DATA QUALITY MAY AFFECT INTERPRETATION PREVIOUS TRACING : 01/18/1998 10.03 Since the previous tracing, no significant change not ed DOCTOR: Raymond Arguello Interpretating Date/Time 02/20/2018 00:37:49
[2018-02-20 06:47] LABS: Baso % (Auto) 0.3 % (0.0-2.0); Eos # (Auto) 0.1 th/mm3 (0.0-0.4); Eos % (Auto) 2.4 % (0.0-4.0); Hematocrit 33.5 % (35.0-46.0); Hemoglobin 10.2 gm/dL (11.6-15.3); Lymph # (Auto) 1.1 th/mm3 (1.0-4.8); Lymph % (Auto) 19.8 % (9.0-44.0); Mean Corpuscular Hemoglobin 21.9 pg (27.0-34.0); Mean Platelet Volume 9.1 fL (7.0-11.0); Mono # (Auto) 0.9 th/mm3 (0.0-0.9); Mono % (Auto) 17.1 % (0.0-8.0); Neut # (Auto) 3.2 th/mm3 (1.8-7.7); Neut % (Auto) 60.4 % (16.0-70.0); Platelet Count 188 th/mm3 (150-450); Red Blood Count 4.65 mil/mm3 (4.00-5.30); Red Cell Distribution Width 15.1 % (11.6-17.2); White Blood Count 5.4 th/mm3 (4.0-11.0)
[2018-02-20 06:54] LABS: Mean Corpuscular HGB Conc 30.4 % (32.0-36.0)
[2018-02-20 07:17] LABS: Alanine Aminotransferase 93 U/L (10-53); Albumin 2.7 g/dL (3.4-5.0); Anion Gap 10 meq/L (5-15); Aspartate Aminotransferase 59 U/L (15-37); Blood Urea Nitrogen 10 mg/dL (7-18); Calcium 8.7 mg/dL (8.5-10.1); Carbon Dioxide 26.9 meq/L (21.0-32.0); Chloride 107 meq/L (98-107); Glomerular Filtration Rate Greater Than 89 mL/min (>89); Glucose,Random 98 mg/dL (74-106); Potassium 3.5 meq/L (3.5-5.1); Sodium 144 meq/L (136-145)
[2018-02-20 07:19] LABS: Alkaline Phosphatase 119 U/L (45-117); Total Protein 6.9 g/dL (6.4-8.2)
--- NOTE | 2018-02-20 07:35 | P.CON ---
History of Present Illness Service: Hematology/oncology Consult date: 02/20/18 Requesting Physician: eGo Romero Reason for Consult: Patient with history of lymphoma. Primary Care Provider: Loren Rodriguez Family Provider: Loren Rodriguez Chief Complaint: Chest, shoulder, abdominal pain, N/V History of Present Illness: Ms. 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 The patient reports being diagnosed in June 2015 with a lymphoma, she is not certain whether this was a Hodgkin lymphoma or a non-Hodgkin lymphoma she does however know she was on treatment with single agent Rituxan between August 2015 and January 2017 under the care of Dr. Petra Mark with [facility] in [place]. She tells me in addition to receiving Rituxan she was treated with external beam radiation. She initially presented to [facility] ([place], [place]) with fevers in June 2015, she was noted to have inguinal lymphadenopathy and underwent an excisional biopsy of 1 of the outside dealer sales representative lymph nodes, this established a diagnosis of lymphoma. The patient tells me she has been on observation for about 1 year now. Over the past 2 and half months she reports noting an unintended 30 pound weight loss, she reports her energy levels have been poor and her appetite is also been poor. Over the past several day she developed symptoms of abdominal pain, nausea and vomiting. She came into this facility for further workup and evaluation. Imaging studies were performed including CT scan of abdomen pelvis, findings revealed uncomplicated colonic diverticulosis, without evidence of active inflammation. A chest x-ray performed also at time of admission revealed findings consistent with volume overload versus mild congestive heart failure. There was no evidence of pulmonary infiltrates to suggest pneumonia. The hematology oncology service is been asked to see her in the inpatient setting because the patient is concerned her lymphoma may be relapsing given her unintended weight loss and constitutional symptoms. I would like to add that the patient routinely follows up with her primary oncologist and was last seen in December 2017. Review of Systems Constitutional: Reports lack of energy, Reports malaise, Reports night sweats, Reports weight loss, Denies chills, Denies daytime sleepiness Eyes: Reports loss of vision, Denies blind spots, Denies change in vision, Denies double vision Ears, Nose, Mouth, and Throat: Reports headache(s), Denies abnormal hearing, Denies bleeding gums, Denies sore throat, Denies throat swelling Cardiovascular: Reports chest pain, Reports shortness of breath with activity ( Symptoms are chronic.), Reports shortness of breath when lying down Respiratory: Reports cough, Reports shortness of breath with activity, Denies change in phlegm color, Denies chest congestion Gastrointestinal: Reports abdominal pain, Reports nausea, Denies bloating, Denies bright, red blood in stools, Denies coffee ground vomit, Denies constipation, Denies cramping, Denies difficulty swallowing, Denies pain with swallowing, Denies vomiting, Denies vomiting blood Genitourinary: Denies abnormal periods, Denies vaginal discharge, Denies vaginal odor Comments: She reports vaginal spotting, this is new, she tells me she had been menopausal prior to this. Musculoskeletal: Denies back pain, Denies body aches, Denies decreased muscle mass Skin/Breast: Denies acne Neurologic: Denies abnormal hearing, Denies abnormal movements, Denies abnormal speech, Denies memory loss, Denies numbness, Denies restless legs Psychiatric: Denies abnormal sleep pattern, Denies anxiety Endocrine: Denies cold intolerance Hematologic/Lymphatic: Denies easy bleeding Allergic/Immunologic: Denies GI upset with certain foods PMFSH - History History Provided By: Patient - Medical History Medical History: Medical History (Last Updated 02/20/18 @ 07:30 by Victor M Neumann MD) Anemia Lymphoma Morbid obesity Peripheral edema Port-A-Cath in place Vitamin B12 deficiency Chronic low back pain - Surgical History Surgical History: Surgical History (Last Updated 02/20/18 @ 07:30 by Victor M Neumann MD) H/O adenoidectomy H/O lymph node biopsy History of tympanoplasty Hx of tonsillectomy Previous section - Family History Family History: Family History (Last Updated 02/19/18 @ 11:33 by Geo Romero DO) Other Dementia HTN (hypertension) - Social History I have reviewed the patient's Social History: Yes - Tobacco History Second Hand Smoke Exposure: No Tobacco Use In Past 30 Days: No Smoking Status: Never smoker - Alcohol History How Often Do You Have a Drink Containing Alcohol: Monthly or less - Substance Use History Substance History: No History of Abuse - Travel History History of Recent Travel: Yes Recent Travel in the [place] Within the Last 8 Weeks: No Recent Travel Out of the Country Within the Last 8 Weeks: No - Immunization History Tetanus Immunization: >5 Years Hx Influenza Vaccine This Season: No Medications and Allergies Active Medications: Active Medications Hydrocodone Bitart/Acetaminophen (Porter 7.5/325) 1 tab PO Q4H PRN PRN Reason: PAIN SCALE 1 TO 7 Last Admin: 02/18/18 23:15 Dose: 1 tab Cephalexin Monohydrate (Keflex) 500 mg PO BID [facility] Last Admin: 02/19/18 21:29 Dose: 500 mg Metoclopramide HCl (Reglan Inj) 5 mg IV.PUSH Q8H PRN; Protocol PRN Reason: BREAKTHROUGH NAUSEA Last Admin: 02/19/18 22:03 Dose: 5 mg Ondansetron HCl (Zofran Inj) 4 mg IV.PUSH Q6H PRN PRN Reason: NAUSEA Last Admin: 02/19/18 17:45 Dose: 4 mg Oxycodone/Acetaminophen (Percocet 10/325 Mg) 1 tab PO Q4H PRN PRN Reason: pain 8-10 Last Admin: 02/19/18 23:54 Dose: 1 tab Sodium Chloride (Ns Flush) 2 ml IV.FLUSH UNSCH PRN PRN Reason: FLUSH AFTER USING IV ACCESS Sodium Chloride (Ns Flush) 2 ml IV.FLUSH BID [facility] Last Admin: 02/19/18 21:29 Dose: 2 ml Sodium Chloride (Ns Flush) 2 ml IV.FLUSH PRN PRN PRN Reason: FLUSH AFTER USING IV ACCESS Allergies Allergy/AdvReac Type Severity Reaction Status Date / Time latex Allergy Intermediate RASH Verified 02/18/18 17:07 Home Medications Medication Instructions Recorded Confirmed Type oxycodone-acetaminophen [Percocet] 1 tab PO BID PRN 02/18/18 02/18/18 History Physical Exam Vital signs: Vital Signs 02/19/18 08:00 02/19/18 09:00 02/19/18 10:00 Temperature Pulse Rate 89 88 95 H Respiratory Rate Blood Pressure Pulse Oximetry 97 02/19/18 11:00 02/19/18 12:00 02/19/18 13:00 Temperature 98.5 F Pulse Rate 90 92 H 100 H Respiratory Rate 20 Blood Pressure 138/73 Pulse Oximetry 97 02/19/18 14:00 02/19/18 15:00 02/19/18 16:00 Temperature 98.1 F Pulse Rate 94 H 82 92 H Respiratory Rate 18 Blood Pressure 146/88 H Pulse Oximetry 96 02/19/18 19:00 02/19/18 20:00 02/19/18 23:00 Temperature 98.1 F 98.0 F Pulse Rate 91 H 90 90 Respiratory Rate 16 16 Blood Pressure 107/55 L 136/71 Pulse Oximetry 95 98 02/20/18 00:00 02/20/18 03:00 02/20/18 04:00 Temperature 98.6 F Pulse Rate 81 86 85 Respiratory Rate 16 Blood Pressure 114/63 Pulse Oximetry 98 Intake & Output 02/19/18 02/20/18 02/20/18 18:59 06:59 18:59 Intake Total 2300 / 2300 620 / 620 Output Total 600 / 600 Balance 1700 / 1700 620 / 620 Weight 149.7 kg Intake: IV 1400 / 1400 NS Inj 1,000 ML @ 100 mls/hr IV 1400 / 1400 .CONT .Q10H [facility] Rx#:[id number] Oral 900 / 900 620 / 620 Output: Urine 600 / 600 Other: # Voids 3 Date of Last Bowel Movement 02/19/18 02/19/18 - Constitutional no acute distress - Routine HEENT Exam Head: Present: normocephalic Eye: Present: EOMI, PERRL ENT: Present: mucous membranes moist - Routine Neck Exam Present: supple, full ROM. Absent: JVD, lymphadenopathy - Routine Respiratory Exam Present: CTA bilaterally. Absent: accessory muscle use, rales, respiratory distress, rhonchi, stridor, wheezes, crackles, distant breath sounds - Routine Cardiovascular Exam Present: RRR, S1, S2. Absent: murmur, gallop, rubs, S3, S4 - Routine Abdominal Exam Present: soft. 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 - Routine Extremities Exam Absent: cyanosis - Routine Skin Exam Present: intact - Routine Neurological Exam Present: alert, oriented X3, CN II-XII intact. Absent: sensory deficit, motor deficit - Detailed Neurological Exam: Coma Scale Eye Opening: Spontaneous - Routine Psychiatric Exam Present: normal affect Assessment and Plan - Plan Ms. Norton is a 53-year-old female with a reported history of lymphoma, she is not certain what type of lymphoma she had and I do not have records. She was initially diagnosed at [facility] in [facility], she was treated by Dr. Petra Mark with single agent rituximab followed by external beam radiation. The patient maintains regular follow-up with her primary oncologist and was last seen in December 2017. Since December the patient reports having lost about 30 pounds, she reports poor appetite, has sweats at nighttime and reports increased fatigue. She presented to this facility on 02/18/2018 with complaints of nausea, vomiting and lower abdominal pain. She underwent CT scan of the abdomen which revealed nonspecific findings, a comment was made on the presence of uncommon located diverticulosis. The patient is being empirically treated with oral antibiotic therapy. For further workup of her constitutional symptoms the hematology service was asked to see her to determine if she may have recurrent lymphoma. Recommendations: 1. History of lymphoma: I will request her records from [facility], these records will be reviewed. I did talk to the patient in depth, I examined her in detail, I reviewed her scans and reviewed her blood work. Overall, it appears this patient likely had a low-grade lymphoma given the relatively low intensity therapy with rituximab that was rendered I suspect she likely had a non-Hodgkin lymphoma. Rituxan as a single agent is rarely used and treatment of anything other than a low-grade non-Hodgkin lymphoma. It would be my recommendation that the patient be treated supportively and when she is ready for discharge she follow-up with her primary oncologist for any additional workup which may be needed. Based on my evaluation this morning I do not suspect any acute issues or impending complications relating to an underlying hematologic or malignant hematologic disorder. Disposition: This patient should be clear for discharge whenever she is medically stable. An inpatient workup for chronic low-grade lymphoma is not indicated at this time.
--- NOTE | 2018-02-20 12:45 | P.PN ---
Subjective Interval history: no fever or chills no urinary symptoms but with right CVA tenderness on exam no diarrhea Physical Exam Vital signs: Vital Signs 02/19/18 13:00 02/19/18 14:00 02/19/18 15:00 Temperature 98.1 F Pulse Rate 100 H 94 H 82 Respiratory Rate 18 Blood Pressure 146/88 H Pulse Oximetry 96 02/19/18 16:00 02/19/18 19:00 02/19/18 20:00 Temperature 98.1 F Pulse Rate 92 H 91 H 90 Respiratory Rate 16 Blood Pressure 107/55 L Pulse Oximetry 95 02/19/18 23:00 02/20/18 00:00 02/20/18 03:00 Temperature 98.0 F 98.6 F Pulse Rate 90 81 86 Respiratory Rate 16 16 Blood Pressure 136/71 114/63 Pulse Oximetry 98 98 02/20/18 04:00 02/20/18 08:46 Temperature 98.4 F Pulse Rate 85 91 H Respiratory Rate 18 Blood Pressure 143/81 H Pulse Oximetry 98 Intake & Output 02/19/18 02/20/18 02/20/18 18:59 06:59 18:59 Intake Total 2300 / 2300 620 / 620 Output Total 600 / 600 Balance 1700 / 1700 620 / 620 Weight 149.7 kg Intake: IV 1400 / 1400 NS Inj 1,000 ML @ 100 mls/hr IV 1400 / 1400 .CONT .Q10H [facility] Rx#:[id number] Oral 900 / 900 620 / 620 Output: Urine 600 / 600 Other: # Voids 3 Date of Last Bowel Movement 02/19/18 02/19/18 Narrative: awake and alert, oriented x 3 anciteric no oral thrush lungs- no rales regular rhythm abdomen flabby, soft, nontender, + right mild CVA tenderness extremiteis no calf tenderness neuro exam- urnemarkable Results - Labs CBC & Chem 7: 02/20/18 05:38 02/20/18 05:38 Laboratory Results - last 24 hr 02/18/18 02/18/18 02/18/18 17:16 17:16 17:52 WBC RBC Hgb Hct MCV MCH MCHC RDW Plt Count MPV Neut % (Auto) Lymph % (Auto) Josephine % (Auto) Eos % (Auto) Baso % (Auto) Neut # (Auto) Lymph # (Auto) Josephine # (Auto) Eos # (Auto) Baso # (Auto) WBC Differential Differential Comment Sodium Potassium Chloride Carbon Dioxide Anion Gap BUN Creatinine Estimated GFR Random Glucose Hemoglobin A1c 5.6 Calcium Total Bilirubin Direct Bilirubin Indirect Bilirubin AST ALT Alkaline Phosphatase Total Protein Albumin TSH Less than 0.005 L Urine Color Ida Urine Clarity Cloudy H Urine pH 5.0 Ur Specific [place] 1.029 Urine Protein 30 H Urine Glucose (UA) Negative Urine Ketones Negative Urine Occult Blood Large H Urine Nitrate Positive H Urine Bilirubin Negative Urine Urobilinogen 2.0 H Ur Leukocyte Esterase Moderate H Urine RBC 32 H Urine WBC 35 H Ur Squamous Epith Cells 13 Urine Bacteria Moderate H Urine Mucus Many H Micro UA Comment Culture indicated Urine Culture Comments Culture indicated 02/20/18 02/20/18 05:38 05:38 WBC 5.4 RBC 4.65 Hgb 10.2 L Hct 33.5 L MCV 72.0 L MCH 21.9 L MCHC 30.4 L RDW 15.1 Plt Count 188 MPV 9.1 Neut % (Auto) 60.4 Lymph % (Auto) 19.8 Josephine % (Auto) 17.1 H Eos % (Auto) 2.4 Baso % (Auto) 0.3 Neut # (Auto) 3.2 Lymph # (Auto) 1.1 Josephine # (Auto) 0.9 Eos # (Auto) 0.1 Baso # (Auto) 0.0 WBC Differential . Differential Comment Auto diff final Sodium 144 Potassium 3.5 Chloride 107 Carbon Dioxide 26.9 Anion Gap 10 BUN 10 Creatinine 0.67 Estimated GFR Greater than 89 Random Glucose 98 Hemoglobin A1c Calcium 8.7 Total Bilirubin 0.7 Direct Bilirubin 0.2 Indirect Bilirubin 0.5 AST 59 H ALT 93 H Alkaline Phosphatase 119 H Total Protein 6.9 D Albumin 2.7 L D TSH Urine Color Urine Clarity Urine pH Ur Specific [place] Urine Protein Urine Glucose (UA) Urine Ketones Urine Occult Blood Urine Nitrate Urine Bilirubin Urine Urobilinogen Ur Leukocyte Esterase Urine RBC Urine WBC Ur Squamous Epith Cells Urine Bacteria Urine Mucus Micro UA Comment Urine Culture Comments Microbiology 02/18/18 17:52 Clean Catch Urine Urine Culture - Final Klebsiella pneumoniae Escherichia coli Assessment and Plan - Plan 53 years old female UTI- growing Klebsieela and E coli clinically with right sided CVA tenderness - placed on keflex 500 mg bid on admission - change to levaquin 750 mg daily - CT of abdomen/pelvis- shows no hydronephrosis or pyelonephritis Chest pain/ Shoulder pain/ Abdominal pain- imrpoved Seems musculoskeletal. Reproducible on exam. Trops negative. EKG without acute ischemia. CXR with mild volume overload. Patient states she has had a normal cardiac catheterization in the past. -pain control with a bowel regimen. -telemetry. -trend LFTs. -physical therapy. N/V/ Weight loss The pt endorses a recent 30 pound weight loss. LFTs are mildly elevated. -check TSH and A1c. -antiemetics as needed. -clear liquid diet for now.- advance diet -trend LFTs. Hodgkin's Lymphoma The pt states her symptoms are identical to the symptoms she had when diagnosed with lymphoma. In addition she has had an unintentional 30 pound weight loss. -oncology ff -ADAT. -follow CBC. if afebrile next 24 hours- DC home in am OP ff with her Oncologist- Dr melo- [facility] [place]
[2018-02-20] MEDS ORDERED: levoFLOXacin 750 MG Tablet PO SCH (13:00)
[2018-02-20] MEDS: oxyCODONE/Acetaminophen 10/325 Tablet PO PRN (15:03)
[2018-02-21 07:28] VITALS: BP 131/68; RESP 18; TEMP 98.1
--- NOTE | 2018-02-21 09:28 | P.PN ---
Subjective Interval history: no fever or chills no abdominal pain no dysuria states poor po appetite and this has been going on for past 3-4 months with weight loss Physical Exam Vital signs: Vital Signs 02/20/18 11:00 02/20/18 12:00 02/20/18 15:00 Temperature 98 F 98.5 F Pulse Rate 93 H 89 90 Respiratory Rate 18 16 Blood Pressure 142/85 H 124/74 Pulse Oximetry 98 02/20/18 16:00 02/20/18 20:51 02/20/18 20:52 Temperature 98.3 F Pulse Rate 92 H 84 84 Respiratory Rate 20 Blood Pressure 137/90 Pulse Oximetry 97 02/20/18 21:37 02/21/18 00:00 02/21/18 00:03 Temperature 98.4 F Pulse Rate 77 84 Respiratory Rate 18 18 Blood Pressure 118/82 Pulse Oximetry 100 02/21/18 03:00 02/21/18 04:00 02/21/18 04:08 Temperature 98.2 F Pulse Rate 92 H 83 Respiratory Rate 16 19 Blood Pressure 133/92 H Pulse Oximetry 98 02/21/18 07:00 Temperature 98.1 F Pulse Rate 82 Respiratory Rate 18 Blood Pressure 131/68 Pulse Oximetry 98 Intake & Output 02/20/18 02/21/18 02/21/18 18:59 06:59 18:59 Intake Total 1200 / 1200 900 / 900 Balance 1200 / 1200 900 / 900 Weight 147.4 kg Intake: Oral 1200 / 1200 900 / 900 Other: # Voids 5 3 Date of Last Bowel Movement 02/19/18 02/19/18 Narrative: awake and alert, oriented x 3 anciteric no oral thrush lungs- no rales regular rhythm abdomen flabby, soft, nontender, + right mild CVA tenderness extremiteis no calf tenderness neuro exam- urnemarkable Results - Labs CBC & Chem 7: 02/20/18 05:38 02/20/18 05:38 Microbiology 02/18/18 17:52 Clean Catch Urine Urine Culture - Final Klebsiella pneumoniae Escherichia coli Assessment and Plan - Plan 53 years old female UTI- growing Klebsieela and E coli clinically with right sided CVA tenderness - placed on keflex 500 mg bid on admission - change to levaquin 500 mg daily - treat for 7 days total- - CT of abdomen/pelvis- shows no hydronephrosis or pyelonephritis - advise OP ff up in 5 days woith PCP- repeat UA Chest pain/ Shoulder pain/ Abdominal pain- imrpoved Seems musculoskeletal. Reproducible on exam. Trops negative. EKG without acute ischemia. CXR with mild volume overload. Patient states she has had a normal cardiac catheterization in the past. -pain control with a bowel regimen. -telemetry. -trend LFTs. -physical therapy. N/V/ Weight loss The pt endorses a recent 30 pound weight loss. LFTs are mildly elevated. -antiemetics as needed. - toelrateing advance diet -trend LFTs. Hodgkin's Lymphoma The pt states her symptoms are identical to the symptoms she had when diagnosed with lymphoma. In addition she has had an unintentional 30 pound weight loss. -oncology ff -ADAT. Poor po appetitie- weight loss for past 3months- on further questioning - d/w her to ff up with PCP= Dr. Rodriguez and have GI work up as OP - states occasional constipation and diarrhea - needs OP work up- GI- never had colonoscopy before and also discuss this with her Oncology- Dr. Melo- since she has history of Lymphona for now we will treat her UTI and discharge her patient expressed full understanding OP ff with her Oncologist- Dr melo- [facility] PCP ff up with Dr. Rodriguez next week with repeat UA
[2018-02-21] MEDS ORDERED: levoFLOXacin 250 MG Tablet PO SCH (09:30)
[2018-02-21 09:55] VITALS: O2SAT 96
[2018-02-21] MEDS ORDERED: levoFLOXacin 500 MG Tablet PO SCH (10:00)
[2018-02-21 10:52] VITALS: PULSE 85
--- NOTE | 2018-03-10 11:59 | P.DS ---
Date of admission: 02/18/18 22:14 Primary care physician: Loren Rodriguez Brief History from admission: The patient is a 53 year old female with a past medical history significant for Hodgkin's Lymphoma diagnosed in 2016 and currently in remission who is presenting to the hospital with chest, shoulder, abdominal pain and nausea and vomiting. The patient says that she woke up yesterday morning at 2:52 AM secondary to severe chest, shoulder and abdominal pain. She said the chest pain was located at the top left of her chest. She says her shoulder pain was located in her left shoulder area. She describes generalized abdominal pain. She is not sure which pain started first. She said she was sweating a lot while she was having the symptoms. She denied shortness of breath. She did not think she had a fever. She denies any new rashes. She says the pain kept getting worse throughout the day so she came to the hospital for further evaluation. In the ED she received morphine and her pain resolved with that. She is still very nauseous. She says her symptoms are similar to the symptoms she had when diagnosed with Hodgkin's Lymphoma. She underwent chemotherapy and radiation treatment and is currently in remission. She states that she has a had an unintentional weight loss of 30 pounds over the past few months. She says that she gets full very quickly and sometimes has abdominal pain. She said that she had an upper and lower GI work up within the last few years. She follows up with oncology as an outpt regularly. She still has a port in place. She is currently complaining of a headache. DS: Medications - Discharge Medications Prescriptions: pantoprazole 40 mg PO DAILY #30 tab DS: Summary Hospital Course: 53 years old female UTI- growing Klebsieela and E coli clinically with right sided CVA tenderness - placed on keflex 500 mg bid on admission - change to levaquin 500 mg daily - treat for 7 days total- - CT of abdomen/pelvis- shows no hydronephrosis or pyelonephritis - advise OP ff up in 5 days woith PCP- repeat UA Chest pain/ Shoulder pain/ Abdominal pain- imrpoved Seems musculoskeletal. Reproducible on exam. Trops negative. EKG without acute ischemia. CXR with mild volume overload. Patient states she has had a normal cardiac catheterization in the past. -pain control with a bowel regimen. -telemetry. -trend LFTs. -physical therapy. N/V/ Weight loss The pt endorses a recent 30 pound weight loss. LFTs are mildly elevated. -antiemetics as needed. - tolerating advance diet -trend LFTs. Hodgkin's Lymphoma The pt states her symptoms are identical to the symptoms she had when diagnosed with lymphoma. In addition she has had an unintentional 30 pound weight loss. -oncology ff -ADAT. Poor po appetite- weight loss for past 3months- on further questioning - d/w her to ff up with PCP= Dr. Rodriguez and have GI work up as OP - states occasional constipation and diarrhea - needs OP work up- GI- never had colonoscopy before and also discuss this with her Oncology- Dr. Melo- since she has history of Lymphona for now we will treat her UTI and discharge her patient expressed full understanding OP ff with her Oncologist- Dr melo- [facility] PCP ff up with Dr. Rodriguez next week with repeat UA - Time Spent with Patient Total time spent providing and/or coordinating discharge services: Greater than 30 minutes - Quality: VTE Deep Vein Thrombosis/Pulmonary Embolism Present on Admission: No Exam Narrative: awake and alert, oriented x 3 anciteric no oral thrush lungs- no rales regular rhythm abdomen flabby, soft, nontender, + right mild CVA tenderness extremiteis no calf tenderness neuro exam- urnemarkable Results Procedures completed during hospitalization: none - Impressions ITS Impressions Abdomen/Pelvis CT 02/18/18 16:55 CONCLUSION: 1. Uncomplicated colonic diverticulosis. 2. Degenerative changes and scoliosis of the thoracolumbar spine. Chest X-Ray 02/18/18 16:55 CONCLUSION: Radiographic appearance consistent with either volume overload versus mild congestive heart failure. No evidence of pneumonia. Discharge Plan - Discharge Disposition Patient Disposition: 01 Discharge Home - Discharge Condition Condition: Stable - Discharge Order Discharge Orders: Discharge Order (Routine); Ordered 02/21/18 Ordered By: Preston Balderrama - Discharge Details Anticipated Discharge Date: 02/21/18 - Physicians Team Primary Care Provider: Loren Rodriguez Attending Provider: Preston Balderrama Other Providers: Victor M Neumann MD
== END 2018-02-21 10:57 | disposition home or self-care (01) ==
LOC: NEDA 14:14 → NEPE 14:14 → HCIS 23:00 → HCIN 02-19 16:04
PROVIDERS: ADMIT Internal Medicine; ATTEND Internal Medicine
DX: R79.89 Other specified abnormal findings of blood chemistry; N39.0 Urinary tract infection, site not specified; R51 Headache; C81.90 Hodgkin lymphoma, unspecified, unspecified site; M25.512 Pain in left shoulder; K57.30 Diverticulosis of large intestine without perforation or abscess without bleeding; R11.2 Nausea with vomiting, unspecified; R07.89 Other chest pain; E87.70 Fluid overload, unspecified; R63.4 Abnormal weight loss; B96.20 Unspecified Escherichia coli [E. coli] as the cause of diseases classified elsewhere; M54.5 Low back pain; G89.29 Other chronic pain; R79.1 Abnormal coagulation profile